=== PATIENT | female | born 1950 | race Caucasian/White ===

== ENCOUNTER 2021-08-20 16:46 | Emergency (ER) | payer MEDICARE, OTHER ==
[~2021-08-20] VITALS: Ht 177.8 cm; Wt 104.5 kg
[2021-08-20 17:10] VITALS: BP 137/78
== END 2021-08-20 19:35 | disposition home or self-care (01) ==
LOC: ER 16:48
DX: S80.811D Abrasion, right lower leg, subsequent encounter (principal); Z88.8 Allergy status to other drugs, medicaments and biological substances; X58.XXXD Exposure to other specified factors, subsequent encounter
CPT/HCPCS: 99281; 99282

== ENCOUNTER 2024-07-04 15:15 | Emergency (ER) | payer MEDICARE, OTHER ==
[~2024-07-04] VITALS: Ht 177.8 cm; Wt 121.4 kg
[2024-07-04 15:15] VITALS: BP 154/82; PULSE 91; RESP 16; TEMP 98.5; O2SAT 97
== END 2024-07-04 17:36 | disposition home or self-care (01) ==
LOC: ER 15:15
DX: R07.81 Pleurodynia (principal); Z88.5 Allergy status to narcotic agent
CPT/HCPCS: 71046; 99283